=== PATIENT | female | born 1980 | race African-American/Black ===

== ENCOUNTER 2018-04-06 19:39 | Emergency (ER) | payer MEDICAID ==
[~2018-04-06] VITALS: Ht 175.3 cm; Wt 79.8 kg
[2018-04-06 20:30] VITALS: BP 114/68
[2018-04-06] MEDS ORDERED: ROBITUSSIN NIG237 ML PO (20:41)
[2018-04-06 20:55] VITALS: BP 114/68
--- NOTE | 2018-04-07 09:53 | Diagnostic Imaging Report ---
Indication: Chest pain Technique: One view of the chest Comparison: none Findings: Lungs and pleural spaces are clear. Heart size is normal . Inspiration is suboptimal and there is some crowding of bronchovascular markings Impression: No acute process
--- NOTE | 2018-04-11 07:03 | Emergency Room Report ---
History of Present Illness General Chief Complaint: Flu Like Symptoms Source: Patient Present Illness HPI Patient presents with complaints of cough and congestion over the past 2 days Denies any chest pain or shortness of breath Denies any back or flank pain denies any vomiting or diarrhea denies any headache Denies any neck pain or photophobia Denies any recent travel There was a note regarding seizure by nursing staff And after asking further patient reports that several days ago she had an episode where she had laid down to her left side and felt that she was shaking however was awake during the process Allergies: Coded Allergies: SULFA (SULFONAMIDE ANTIBIOTICS) (Verified Allergy, Unknown, 04/06/18) Patient History Past Medical History: see triage record Pertinent Family History: none Last Menstrual Period: 2 years Reviewed Nursing Documentation: PMH: Agreed; PSxH: Agreed Nursing Documentation-PMH History Of Psychiatric Problem: Yes - ANXIETY Review of Systems All Other Systems: negative except mentioned in HPI Physical Exam 98% on RA which is normal Sp02 EP Interpretation: reviewed, normal General Appearance: well appearing, no apparent distress Head: normocephalic, atraumatic Eyes: bilateral eye PERRL, bilateral eye EOMI ENT: hearing grossly normal, normal pharynx, TMs + canals normal, uvula midline Neck: full range of motion, supple, no meningismus, no bony tend Respiratory: lungs clear, normal breath sounds, no rhonchi, no respiratory distress, no retraction, no accessory muscle use Cardiovascular #1: normal peripheral pulses, regular rate, rhythm, no edema, no gallop, no JVD, no murmur Gastrointestinal: normal bowel sounds, non tender, soft, no mass, no organomegaly, non-distended, no guarding, no hernia, no pulsatile mass, no rebound Genitourinary: no CVA tenderness Musculoskeletal: normal inspection Neurologic: oriented x3, responsive, crossing watchman III-XII nml as tested, motor strength/ tone normal, sensory intact Psychiatric: mood/affect normal Skin: normal color, no rash, warm/dry, palpation normal Lymphatic: normal inspection, no adenopathy Medical Decision Making Diagnostic Impression: Primary Impression: cough Additional Impression: uri ER Course Given the history exam and presentation Patient appears well Does not appear septic or toxic Saturating appropriately X-ray imaging was done which was negative I feel the patient has findings consistent with URI And is stable for initial conservative outpatient trial Chest X-Ray Diagnostic Results Chest X-Ray Diagnostic Results : Chest X-Ray Ordered: Yes # of Views/Limited/Complete: 1 View Indication: Chest Pain EP Interpretation: Yes Interpretation: no consolidation, no effusion, no pneumothorax Impression: No acute disease Electronically Signed by: Dulce Herr DO Status: improved Disposition: HOME, SELF-CARE Condition: Improved Scripts Dextromethorphan Hb/Doxylamine (ROBITUSSIN NIGHTTIME COUGH DM) 237 Ml Liquid 10 ML PO QHS for 5 Days, ML Prov: Dulce Herr DO 04/06/18 Referrals: NON PHYSICIAN (PCP) Patient Instructions: Upper Respiratory Infection, Adult Additional Instructions: Patient is provided with the discharge instructions notified to follow up with primary doctor in the next 2-3 days otherwise return to the er with any worsening symptoms. Please note that this report is being documented using [email or web address] technology. This can lead to erroneous entry secondary to incorrect interpretation by the dictating instrument. Dulce Herr DO Apr 11, 2018 07:03
== END 2018-04-06 20:55 | disposition home or self-care (01) ==
LOC: EMR 20:22
DX: J06.9 Acute upper respiratory infection, unspecified (principal); F41.9 Anxiety disorder, unspecified; Z88.2 Allergy status to sulfonamides
CPT/HCPCS: 71045; 99283